=== PATIENT | female | born 1970 | race Caucasian/White ===

== ENCOUNTER 2019-07-09 17:47 | Emergency (ER) | payer MEDICAID, SELFPAY ==
[2019-07-09 17:56] VITALS: BP 157/81; PULSE 99; RESP 18; TEMP 36.8; O2SAT 100
--- NOTE | 2019-07-09 18:09 | ED.GENADUL_ITS ---
Discharge Plan Disposition Patient Disposition: HOME Condition: Good Discharge Details Chief Complaint: RashLesion Clinical Impression: Contact dermatitis, Poison kendra Primary Care Provider: Romero Manning ED Provider: Dillon Walker Home Meds and New Rx's Prescriptions: New hydroxyzine HCl 25 mg tablet 25 mg PO TID PRN (Reason: itching) Qty: 30 RF: 0 prednisone 20 mg tablet 20 mg PO DAILY Qty: 42 RF: 0 hydrocortisone 1 % cream 1 applic TP TID PRN (Reason: rash) Qty: 14.2 RF: 0 No Action diphenhydramine HCl [Benadryl] 25 mg Capsule See Rx Instructions .ROUTE .COMPLEX RF: 0 Discharge Instructions Instructions: Poison Kendra (ED) Additional Instructions: You have a notable irritation to what I suspect to be poison kendra or poison oak or poison parsnips. Please take the steroid as directed. Please take the hydroxyzine for itching. Please use the hydrocortisone cream only on the places where it is the worst. In regards to pain, you can take 600 mg of ibuprofen every 6 hours and 1000 mg of Tylenol every 6 hours. With the steroids and the Tylenol and ibuprofen there is notable concern for stomach ulcer. Please avoid any spicy foods, tomato-based foods, or citrus foods. If you notice any irritation in your stomach, or any blood in your stool, please stop taking the ibuprofen immediately. If you notice any worsening of your symptoms, or any new symptoms such as vomiting, diarrhea, fever, chills, shortness of breath, chest pain, numbness, weakness, or fainting , please return immediately to the emergency department for reevaluation. Please follow up with your primary care provider as soon as possible for reassessment and reevaluation. As always, it was a pleasure participating in your medical care today. Referrals: Romero Manning [Primary Care Provider] - Medical Decision Making This is a pleasant 49-year-old female who presents today for evaluation of suspected allergic reaction to poison kendra. 1 week ago the patient came in contact with poison kendra or poison presents. She is since developed a rash to her right wrist and buttock region. Notably itchy. Physical exam demonstrates signs and symptoms clinically consistent with a contact dermatitis based on an oil based plant. She has been taking calamine lotion, however this is not been improving her symptoms. Indication for treatment with prolonged course of steroids, Atarax for the itching, Tylenol and Motrin for pain, and topical hydrocortisone cream for the worst most affected areas. Because of the anticipated steroid use in conjunction with Tylenol Motrin we had a long discussion about preventing GI ulcers, including foods for which to avoid, importance of Maalox, and red flags which she should immediately return for reassessment. I have extensively reviewed the treatment plan and discharge instructions with the patient and their family. I have addressed all patient concerns at this time. The patient and family was made aware of what symptoms to monitor for that would warrant a return to the emergency department. Discussed the plan with the patient and family, they demonstrate verbal understanding and agreement with our assessment and plan at this time. HPI General Date/Time Provider Initiated Documentation: 07/09/19 18:00 . HPI Narrative: Mars machuca is a 49-year-old female with no significant past medical history who presents today for evaluation of an allergic reaction secondary to contact with poison kendra. For the past week the patient has been dealing with this, 1 week ago she initially rubbed up against a plant, had a mild irritation on her wrist and then when she was taking off her pants they rubbed up against her buttock. Since then she has had notable rash, irritation itching and pain. She has been placing calamine lotion on it however this is not improved her symptoms. Currently the rash is present on her left wrist and buttock bilaterally. She denies any fever or chills, she denies any drainage or discharge. She denies any other significant medical problems or complaints. No other modifying factors. She has been taking Benadryl occasionally for the itching but this is not significantly help. She denies any pertinent family history, IV or illicit drug use, or recent surgical history. Related Data Home Medications Medication Instructions Recorded Confirmed diphenhydramine HCl [Benadryl] See Rx Instructions .ROUTE .COMPLEX 07/09/19 07/09/19 hydrocortisone 1 applic TP TID PRN #14.2 gm 07/09/19 hydroxyzine HCl 25 mg PO TID PRN #30 tab 07/09/19 prednisone 20 mg PO DAILY #42 tab 07/09/19 Previous Rx's Medication Instructions Recorded hydrocortisone 1 applic TP TID PRN #14.2 gm 07/09/19 hydroxyzine HCl 25 mg PO TID PRN #30 tab 07/09/19 prednisone 20 mg PO DAILY #42 tab 07/09/19 Allergies Allergy/AdvReac Type Severity Reaction Status Date / Time poison kendra extract Allergy Skin Rash Unverified 07/09/19 18:04 General Stated Complaint: RashLesion CHATO: 4 Review of Systems Review of Systems All systems reviewed & are unremarkable except as noted in HPI and below PFSH Social History Smoking/Tobacco Use Status: Never Alcohol Intake: current Alcohol Intake frequency: 0-2 drinks per day Substance use type: does not use Exam Narrative Exam Narrative: 1.Const: Well-nourished, Well-developed, appearing stated age 2.Eyes: PERRL, no conjunctival injection, and symmetrical lids. 3.ENT: Atraumatic external nose and ears. Moist MM. Neck: Symmetric, trachea midline, No thyromegaly. 4.CVS: +S1/S2, No murmurs or gallops. Peripheral pulses 2+ and equal in all extremities. Brisk capillary refill in all extremities. 5.RESP: Unlabored respiratory effort. Clear to auscultation bilaterally. No wheezes rales or rhonchi 6.GI: Soft, Nontender/Nondistended, No hepatosplenomegaly. No guarding or rebound. 7.MSK: Normocephalic/Atraumatic, Extremities w/o deformity or ttp No cyanosis or clubbing, Normal movement of all extremities 8.Skin: Warm, Dry. Mild erythematous lesions with small amounts of vesicles and crusting on the patient's left wrist, and gluteal cleft on the inferior aspect bilaterally. Clinically consistent with a contact dermatitis. Negative Nikolsky sign. No large vesicles or bulla. No palpable purpura. No oral lesions. No mucosal lesions. No evidence of severe cellulitis. No evidence of vaccine preventable rash. 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 Sensation grossly intact, no focal neurologic deficits. 10.Psych: (AAO) x3. Appropriate mood and affect Course Vital Signs Temperature 36.8 C 07/09/19 17:56 Pulse 99 H 07/09/19 17:56 Respiratory Rate 18 07/09/19 17:56 Blood Pressure 157/81 H 07/09/19 17:56 Pulse Oximetry 100 07/09/19 17:56 Temperature 36.8 C 07/09/19 17:56 Temperature Source Skin 07/09/19 17:56 Pulse 99 H 07/09/19 17:56 Respiratory Rate 18 07/09/19 17:56 Respiratory Effort Non-Labored 07/09/19 18:01 Blood Pressure 157/81 H 07/09/19 17:56 Blood Pressure Position Standing 07/09/19 17:56 Pulse Oximetry 100 07/09/19 17:56 Oxygen Delivery Method Room Air 07/09/19 17:56 Oxygen Flow Rate 0 07/09/19 17:56
[2019-07-09] MEDS: predniSONE 20 MG TAB (18:13)
== END 2019-07-09 18:28 | disposition home or self-care (01) ==
LOC: ER 18:32
PROVIDERS: Emergency Provider Student in an Organized Health Care Education/Training Program; PCP Family Medicine
DX: L23.7 Allergic contact dermatitis due to plants, except food (principal)
CPT/HCPCS: 99283; J7512